=== PATIENT | female | born 1995 | race Two or more races ===

== ENCOUNTER 2018-12-30 16:28 | Emergency (ER) | payer MEDICAID, OTHER ==
[~2018-12-30] VITALS: Ht 157.5 cm; Wt 63.5 kg
[2018-12-30 19:31] VITALS: BP 96/65
== END 2018-12-30 21:04 | disposition home or self-care (01) ==
LOC: ER 16:35
DX: S30.1XXA Contusion of abdominal wall, initial encounter (principal); V86.59XA Driver of other special all-terrain or other off-road motor vehicle injured in nontraffic accident, initial encounter; Y93.89 Activity, other specified; Y92.488 Other paved roadways as the place of occurrence of the external cause; Y99.8 Other external cause status
CPT/HCPCS: 36415; 74176; 84702; 94761